=== PATIENT | female | born 1975 | race Caucasian/White ===

== ENCOUNTER 2018-12-28 12:38 | Emergency (ER) | payer BC ==
[2018-12-28] MEDS ORDERED: LORazepam INJ* 2 MG/ML 1 ML VIAL IV PUSH ONE (13:27)
[2018-12-28] MEDS ORDERED: Lorazepam PYXIS KEY PRN (13:27)
--- NOTE | 2018-12-28 13:44 | ED ---
Psychiatric Complaint - HPI Summary HPI Summary: This patient is a 43 year old F presenting to [facility] with a chief complaint of a panic attack since 1100. Pt reports tightness in chest, anxiousness, nausea, dizziness, and SOB. Then she went to the bathroom and felt like she was going to pass out but she got better after a few minutes. Pt has PMHx of anxiety. Pt has a FHx of heart disease. Medications reviewed. Allergies noted. - History Of Current Complaint Chief Complaint: EDPsychosocial Time Seen by Provider: 12/28/18 13:12 Hx Obtained From: Patient Onset/Duration: Sudden Onset, Still Present Timing: Hours Severity Currently: None Character: Anxious Aggravating Factor(s): Recent Stress Alleviating Factor(s): Nothing Associated Signs And Symptoms: Positive: Negative Related History: Positive For: Prior Psychiatric Issues - Anxiety Has Suicidal: Denies: Thoughts Has Homicidal: Denies: Thoughts - Allergies/Home Medications Allergies/Adverse Reactions: Allergies Allergy/AdvReac Type Severity Reaction Status Date / Time No Known Allergies Allergy Verified 12/28/18 12:41 Home Medications: Home Medications Venlafaxine EXT RELEASE CAP* [Effexor Xr CAP*] 37.5 mg PO DAILY 12/28/18 [ History Confirmed 12/28/18] PMH/Surg Hx/FS Hx/Imm Hx Sensory History: Denies: Hx Legally Blind, Hx Deafness Opthamlomology History: Denies: Hx Legally Blind EENT History: Denies: Hx Deafness Psychiatric History: Reports: Hx Anxiety Infectious Disease History: No Infectious Disease History: Denies: Traveled Outside the [place] in Last 30 Days - Family History Known Family History: Positive: Cardiac Disease - Social History Occupation: Employed Full-time Alcohol Use: Occasionally Substance Use Type: Reports: None Smoking Status (MU): Never Smoked Tobacco Review of Systems Positive: Chest Pain Positive: Shortness Of Breath Positive: Nausea Neurological: Other - pos - dizziness Positive: Anxious All Other Systems Reviewed And Are Negative: Yes Physical Exam - Summary Physical Exam Summary: Constitutional: Well-developed, Well-nourished, Alert. (-) Distressed Skin: Warm, Dry HENT: Normocephalic; Atraumatic Eyes: Conjunctiva normal Neck: Musculoskeletal ROM normal neck. (-) JVD, (-) Stridor, (-) Tracheal deviation Cardio: Rhythm regular, rate normal, Heart sounds normal; Intact distal pulses; The pedal pulses are 2+ and symmetric. Radial pulses are 2+ and symmetric. (-) Murmur Pulmonary/Chest wall: Effort normal. (-) Respiratory distress, (-) Wheezes, (-) Rales Abd: Soft, (-) tenderness, (-) Distension, (-) Guarding, (-) Rebound Musculoskeletal: (-) Edema Lymph: (-) Cervical adenopathy Neuro: Alert, Oriented x3 Psych: Anxious Appearing Triage Information Reviewed: Yes Vital Signs On Initial Exam: Initial Vitals Temp Pulse Resp BP Pulse Ox 98.4 F 104 22 143/88 98 12/28/18 12:39 12/28/18 12:39 12/28/18 12:39 12/28/18 12:39 12/28/18 12:39 Vital Signs Reviewed: Yes Diagnostics - Vital Signs Vital Signs Temp Pulse Resp BP Pulse Ox 12/28/18 12:39 98.4 F 104 22 143/88 98 - Laboratory Result Diagrams: 12/28/18 13:29 12/28/18 13:29 Lab Statement: Any lab studies that have been ordered have been reviewed, and results considered in the medical decision making process. - Radiology CXR Radiology Interpretation Completed By: Radiologist Summary of Radiographic Findings: CXR reveals, per radiologist, IMPRESSION: NO ACTIVE CARDIOPULMONARY DISEASE. ED physician has reviewed this radiology report. - EKG 1350 Cardiac Rate: NL - 78 bpm EKG Rhythm: Sinus Rhythm Summary of EKG Findings: An EKG at 1350 reveals sinus rhythm 78 bpm, 2 PVCs, T- wave inversion in III. 1351 Cardiac Rate: NL - 89 bpm EKG Rhythm: Sinus Rhythm Summary of EKG Findings: An EKG at 1351 reveals sinus rhythm 89 bpm, T-wave inversion in III. Re-Evaluation - Re-Evaluation First Eval Re-Evaluation Time: 14:36 Comment: Pt is feeling slightly better, and is just getting her medication. Second Eval Re-Evaluation Time: 15:39 Comment: Pt is feeling better after medicine Course/Dx - Course Course Of Treatment: Patient is here with chest pain, shortness of breath. Patient does have a history of anxiety disorder because never had a panic attack. Patient does appear to be having a panic attack on examination with mild improvement in her symptoms after by mouth Ativan. However, patient had her brother at the age of 52 from an [place]. Patient had serial EKG and troponin which were grossly unremarkable. Patient had a negative d-dimer for PE. Patient had negative chest x-ray. Patient will follow up for an outpatient stress test which was ordered here. - Differential Dx/Clinical Impression Provider Diagnosis: Chest pain, Anxiety reaction - Physician Notifications Discussed Care Of Patient With: Yenifer Baltazar Time Discussed With Above Provider: 15:40 Instructed by Provider To: Other - Dr. Baltazar will place an order for a stress test. Discharge ED - Sign-Out/Discharge Documenting (check all that apply): Patient Departure - Discharge Patient Received Moderate/Deep Sedation with Procedure: No - Discharge Plan Condition: Stable Disposition: HOME Patient Education Materials: Chest Pain (ED) Referrals: Marlene Godoy MD [Primary Care Provider] - 3 Days Additional Instructions: If you do not receive a call in next few days to schedule a stress test, call the hospital, . PLEASE RETURN TO EMERGENCY DEPARTMENT FOR ANY NEW OR WORSENING SYMPTOMS. Please follow up with your primary care physician. Please make all follow-ups in 1-3 days unless I advise you otherwise - Billing Disposition and Condition Condition: STABLE Disposition: Home - Attestation Statements Document Initiated by Jaclyn: Yes Documenting Scribe: Damaris Cassidy Provider For Whom Jaclyn is Documenting (Include Credential): Mert Mcfarland MD Scribe Attestation: Damaris Holloway, scribed for Mert Mcfarland MD on 12/28/18 at 1913. Scribe Documentation Reviewed: Yes Provider Attestation: The documentation as recorded by the Damaris dominguez accurately reflects the service I personally performed and the decisions made by me, Mert Mcfarland MD Status of Scribe Document: Viewed
[2018-12-28 13:49] LABS: ABS Basophils 0.1 10^3/ul (0-0.2); ABS Lymphocytes 3.6 10^3/ul (1.0-4.8); ABS Monocytes 0.6 10^3/ul (0-0.8); ABS Neutrophils 8.1 10^3/ul (1.5-7.7); Eosinophil % 0.3 %; Hematocrit 42 % (35-47); Hemoglobin 14.5 g/dL (12.0-16.0); Lymphocyte % 29.1 %; Mean Corpuscular HGB Conc 34 g/dL (31-36); Mean Corpuscular Hemoglobin 31 pg (27-31); Mean Corpuscular Volume 90 fL (80-97); Platelet Count 361 10^3/uL (150-450); Red Blood Count 4.72 10^6 /uL (3.70-4.87); Red Cell Distribution Width 13 % (10-15); White Blood Count 12.4 10^3/uL (3.5-10.8)
[2018-12-28] MEDS ORDERED: LORazepam TAB(*) 1 MG PO ONE (13:53)
[2018-12-28 14:06] LABS: ALT 27 U/L (7-52); AST 27 U/L (13-39); Albumin 4.5 g/dL (3.2-5.2); Albumin/Globulin Ratio 1.5 (1-3); Alkaline Phosphatase 84 U/L (34-104); Anion Gap 12 mmol/L (2-11); BUN/Creatinine Ratio 11.7 (8-20); Blood Urea Nitrogen 9 mg/dL (6-24); CO2 Carbon Dioxide 20 mmol/L (22-32); Calcium 9.9 mg/dL (8.6-10.3); Chloride 106 mmol/L (101-111); EGFR Non-African American 82.6 (>60); Glucose 108 mg/dL (70-100); Potassium 3.8 mmol/L (3.5-5.0); Sodium 138 mmol/L (135-145); Total Protein 7.5 g/dL (6.4-8.9)
[2018-12-28 14:13] LABS: HCG Pregnancy < 0.60 mIU/mL
[2018-12-28] MEDS ORDERED: Aspirin 81 mg CHEW TAB* 81 MG TAB.CHEW PO ONE (15:01)
[2018-12-28 15:18] LABS: TSH (Thyroid Stimulating Horm) 2.43 mcIU/mL (0.34-5.60)
[2018-12-28 17:01] VITALS: BP 122/78
== END 2018-12-28 17:00 | disposition home or self-care (01) ==
LOC: ED 12:38
DX: R07.89 Other chest pain (principal); F41.1 Generalized anxiety disorder; R06.02 Shortness of breath; R11.0 Nausea; R42 Dizziness and giddiness
CPT/HCPCS: 36415; 71046; 80053; 84443; 84484; 84702; 85025; 85379; 93005; 99283; A9270-GY